=== PATIENT | female | born 2000 | race Caucasian/White ===

== ENCOUNTER 2020-06-29 07:26 | Inpatient (IN) ==
[2020-06-29] MEDS ORDERED: OXYTOCIN 30 UNITS/500 ML BAG IV PRN (09:33)
[2020-06-29] MEDS ORDERED: TERBUTALINE SULFATE 1 MG/ML VIAL ONE (09:49)
[2020-06-29] MEDS: LACTATED RINGER'S 1,000 ML IV PRN ×4 (09:50→16:03)
[2020-06-29 09:54] LABS: Hematocrit (blood only) 35.2 % (37-47); Hemoglobin 11.6 g/dL (12.0-16.0); Mean Corpuscular Hemoglobin 27.8 pg (25-34); Mean Corpuscular Volume 84.4 fL (80-100); Mean Platelet Volume 10.6 fL (7.4-10.4); Platelet Count 310 K/uL (130-400); RDW Coefficient of Variation 14.4 % (11.5-14.5); RDW Standard Deviation 44.7 fL (36.4-46.3); Red Blood Count 4.17 M/uL (4.2-5.4); White Blood Count 14.89 K/uL (4.8-10.8)
--- NOTE | 2020-06-29 10:05 | Progress Note ---
Date of Service June 29, 2020 Assessment & Plan Admission and Anticipated Discharge Date Admission Date: June 29, 2020 Subjective feta Decel seen on central etal monitor walked into pt's room, she was on her rt side and nurse was establishing IV access FHR was in the 80;s. pt has tetanic contraction scalp was preformed and fetus responded. Oxygen given and Brethine administered Meconium was noted with scalp stimulation scalp placed FHR returned to baseline expectant management for now Results & Data ([facility]) Vital Signs (Past 12 Hours) Vital Signs Temp Pulse Resp BP 06/29/20 09:29 18 06/29/20 08:28 93 H 95/53 L 06/29/20 07:52 93 H 95/53 L 06/29/20 07:46 37.2 C 93 H 18 91/51 L 06/29/20 07:42 93 H 91/51 L 06/29/20 07:32 37.2 C 18
--- NOTE | 2020-06-29 10:39 | Anesthesiology Consultation ---
Date of Service June 29, 2020 Assessment & Plan (1) Encounter for pre-operative examination: Chart Review Chart Review: Acceptable Risk for Surgery and Acceptable Risk for Labor Epidural (or spinal for if required) Consults Requested none ASA ASA2 Proposed Anesthesia Anesthesia Type: Labor Epidural (or spinal if csection is required) Risk / Benefits Reviewed With: PT / POA / Parent / Guardian, Accepts Plan and Informed Consent Obtained Additional Notes Labs pending. Patient required terbutaline after decel immediately after arriving. Patient wants epidural if she is able to have a vaginal delivery. She was consented for epidural in case of vaginal delivery. She was also consented for spinal and/or GA in the event of an emergency requiring . Patient to remove lip ring in case of need for emergent intubation. We will continue to follow. History Height/Weight Height: 5 ft 1 in Weight: 87.543 kg Allergies Allergy/AdvReac Type Severity Reaction Status Date / Time No Known Allergies Allergy Unverified 06/29/20 07:38 Medications Home Medications Medication Instructions Recorded Confirmed Last Taken ferrous sulfate [Iron (ferrous 325 mg PO DAILY 06/29/20 06/29/20 06/28/20 sulfate)] prenat.vits,ashley,[id number]-[id number] 1 tab PO DAILY 06/29/20 06/29/20 06/28/20 [ #2] Active Medications Generic Name Dose Route Start Last Admin Trade Name Freq PRN Reason Stop Dose Admin Lactated Ringer's 1,000 mls @ 125 mls/hr 06/29/20 09:33 06/29/20 10:38 Lr IV 07/01/20 09:32 125 mls/hr .Q8H PRN Infusion L&D Protocol Protocol NPO Date Last Intake of Fluids: 06/29/20 Time Last Intake of Fluids: 10:29 Date Last Intake of Solids: 06/28/20 Time Last Intake of Solids: 18:00 Past Medical History Medical History No known health problems Exercise / Class Metabolic Activity II 4-5 Yardwork/Stairs/Walk up hill Negative for chest pain or shortness of breath. Past Family History Family History Other No history of previous surgery No known health problems Past Surgical History Surgical History No history of previous surgery Past Anesthesia History No Family Hx of Anesthesia Complications History of PONV No Hx of Motion Sickness Social History Smoking Status: Former smoker Hx Alcohol Use: No Hx Substance Use: No Physical Exam Vital Signs Last Vital Signs Temp 37.2 C 06/29/20 07:46 Pulse 115 H 06/29/20 10:26 Resp 18 06/29/20 09:29 BP 95/53 L 06/29/20 08:28 Pulse Ox 100 06/29/20 10:26 Constitutional not obese (gravid uterus) ENMT Mouth: + macroglossia; no TMJ abnormality and oral opening not small Thyromental Distance: > or= 3.5 Finger Breadths Mallampati Class: III upper lip ring Neck normal visual inspection; neck extension not limited Respiratory normal respiratory effort Auscultation: lungs clear to auscultation bilaterally Cardiovascular Rate/Rhythm: regular rate and regular rhythm Heart Sounds: no murmur Neurologic moves all extremities Motor/Sensory: no sensory deficit History of back pain due to mild scoliosis Psychiatric Orientation: alert and oriented x 3 Testing Laboratory Results 06/29/20 09:43
[2020-06-29] MEDS ORDERED: ePHEDrine sulfate 50 MG/ML AMP ONE (12:00)
[2020-06-29] MEDS ORDERED: BUPIVACAINE 0.25% 30 ML VIAL ONE (12:01)
[2020-06-29] MEDS ORDERED: SODIUM CHLORIDE 0.9% INJ 10 ML VIAL ONE (12:01)
[2020-06-29] MEDS ORDERED: fentaNYL citrate 100 MCG/2 ML VIAL ONE ×2 (12:01→17:46)
[2020-06-29] MEDS ORDERED: fentaNYL 2MCG/ML ROPIVACAINE 1.25MG/ML 100 ML BAG EPI ONE (12:02)
[2020-06-29] MEDS ORDERED: NALOXONE HCL 0.4 MG/1 ML VIAL/CARP IV PRN ×3 (12:55→19:50)
[2020-06-29] MEDS ORDERED: NALOXONE HCL 1 MG in SODIUM CHLORIDE 0.9% 1000ML 1,000 ML IV PRN ×3 (12:55→19:50)
[2020-06-29] MEDS ORDERED: PROMETHAZINE HCL 6.25 MG in SODIUM CHLORIDE 0.9% 50 ML IV PRN ×2 (12:55→19:50)
[2020-06-29] MEDS ORDERED: ePHEDrine sulfate 50 MG/ML AMP IV PRN ×3 (12:55→19:50)
[2020-06-29] MEDS ORDERED: fentaNYL 2MCG/ML ROPIVACAINE 1.25MG/ML 100 ML BAG EPI PRN (12:55)
[2020-06-29] MEDS ORDERED: ONDANSETRON INJ 2 MG/ML 2 ML VIAL IV PRN ×3 (12:55→19:50)
[2020-06-29] MEDS ORDERED: diphenhydrAMINE 50 MG/ML VIAL IV PRN ×3 (12:55→19:50)
[2020-06-29] MEDS ORDERED: LIDOCAINE/EPINEPHRINE 2% 1:200,000 20 ML SDV ONE (17:44)
[2020-06-29] MEDS ORDERED: OXYTOCIN 10 UNITS/ML VIAL ONE (17:44)
[2020-06-29] MEDS ORDERED: CITRIC ACID/SODIUM CITRATE 15 ML UDC PO ONE (17:45)
[2020-06-29] MEDS ORDERED: LACTATED RINGER'S 1,000 ML IV SCH ×2 (17:45→19:30)
[2020-06-29] MEDS ORDERED: ceFAZolin 2000MG 2,000 MG/15 ML SYR IV ONE (17:45)
[2020-06-29] MEDS ORDERED: MoRPHine SULFATE PF 1 MG/ML 10 ML AMP/VIAL ONE (17:46)
[2020-06-29] MEDS ORDERED: PHENYLEPHRINE 100MCG/ML 5ML SYR ONE (17:47)
[2020-06-29] MEDS ORDERED: NALOXONE HCL 0.08 MG in SYRINGE 1.8 ML IV PRN ×2 (17:54→19:50)
[2020-06-29] MEDS ORDERED: MoRPHine SULFATE PF 1 MG/ML 10 ML AMP/VIAL EPI ONE (17:54)
[2020-06-29] MEDS ORDERED: LACTATED RINGER'S 500 ML IV PRN ×2 (17:54→19:50)
[2020-06-29] MEDS ORDERED: HYDROmorphone INJ 0.5 MG/0.5 ML SYR IV PRN ×2 (17:54→19:50)
[2020-06-29] MEDS ORDERED: KETOROLAC 30 MG/ML VIAL IV PRN ×2 (17:54→19:50)
[2020-06-29] MEDS ORDERED: SODIUM CHLORIDE 0.9% 1000ML 1,000 ML IV SCH ×2 (18:00→20:00)
[2020-06-29] MEDS ORDERED: NO NARCOTICS OR SEDATIVES SCH ×2 (18:00→20:00)
[2020-06-29] MEDS ORDERED: METHYLERGONOVINE MALEATE 0.2 MG/ML AMP ONE (18:31)
[2020-06-29 19:07] LABS: Base Excess Cord Arterial Bld -3.4 mEq/L (-9-1.8); CO2 Cord Arterial Blood 44 mmHg (39.1-73.5); HCO3 Cord Arterial Blood 23 mmol/L (19.7-28.5); PO2 Cord Arterial Blood 29 mmHg (4.1-31.7); pH Cord Arterial Blood 7.33 (7.1-7.38)
[2020-06-29 19:11] LABS: Oxygen Sat Cord Arterial Blood < 60.0 % (<60)
[2020-06-29 19:12] LABS: Base Excess Cord Venous Blood -3.4 mEq/L (-7.7-1.9); Cord Venous Blood HCO3 23 mmol/L (18.4-26.8); Cord Venous Blood PCO2 45 mmHg (30.4-57.2); Cord Venous Blood PO2 28 mmHg (14.1-43.3); Cord Venous Blood pH 7.32 (7.20-7.44)
[2020-06-29 19:15] LABS: O2 Saturation Cord Venous Bld < 60.0 % (<68)
[2020-06-29] MEDS ORDERED: BENZOCAINE 20% AER SPR 82.5 GM CAN EXT PRN (19:27)
[2020-06-29] MEDS ORDERED: HYDROCORTISONE ACETATE 25 MG SUPP PR PRN (19:27)
[2020-06-29] MEDS ORDERED: SENNA 8.6 MG TAB PO PRN (19:27)
[2020-06-29] MEDS ORDERED: SUPERCREAM 0.870% 15 GM JAR EXT PRN (19:27)
[2020-06-29] MEDS ORDERED: DIPHTHERIA/TETANUS/PERTUSSIS 0.5 ML SYR/VIAL IM ONE (19:27)
[2020-06-29] MEDS ORDERED: MAGNESIUM HYDROXIDE SUSP 30 ML UDC PO PRN (19:27)
[2020-06-29] MEDS ORDERED: miSOPROStoL 200 MCG TAB ONE (19:40)
[2020-06-29] MEDS ORDERED: OXYTOCIN 20 UNITS in LACTATED RINGER'S 1,000 ML IV SCH (19:45)
--- NOTE | 2020-06-29 19:49 | Anesthesiology Progress Note ---
Date of Service June 29, 2020 Anesthesia Post Procedure Vital Signs Vital Signs: Temp Pulse Resp BP Pulse Ox Pulse Ox 06/29/20 19:44 107 H 97 06/29/20 19:43 102 H 103/61 93 06/29/20 19:39 112 H 97 06/29/20 19:36 106 H 94 06/29/20 19:32 108 H 98 06/29/20 19:30 105 H 107/58 L 06/29/20 19:28 99 H 92 06/29/20 17:55 126 H 99 06/29/20 17:50 126 H 98 06/29/20 17:45 135 H 100 06/29/20 17:40 123 H 140/73 98 06/29/20 17:35 124 H 99 06/29/20 17:30 128 H 99 06/29/20 17:29 131 H 126/59 L 06/29/20 17:25 123 H 100 06/29/20 17:20 126 H 99 06/29/20 17:19 127 H 129/63 06/29/20 17:10 127 H 131/70 06/29/20 17:04 123 H 116/57 L 06/29/20 16:59 123 H 116/57 L 06/29/20 16:49 129 H 130/59 L 06/29/20 16:39 133 H 127/58 L 06/29/20 16:29 133 H 140/68 06/29/20 16:20 134 H 131/60 06/29/20 16:09 136 H 131/60 06/29/20 15:59 101 H 125/66 06/29/20 15:49 90 135/84 06/29/20 15:46 102 H 100 06/29/20 15:41 97 H 100 06/29/20 15:39 101 H 140/79 06/29/20 15:36 96 H 100 06/29/20 15:31 101 H 98 06/29/20 15:30 94 H 133/72 06/29/20 15:26 94 H 96 06/29/20 15:21 95 H 98 06/29/20 15:19 92 H 120/58 L 06/29/20 15:16 91 H 96 06/29/20 15:11 102 H 97 06/29/20 15:09 88 114/58 L 06/29/20 15:06 101 H 97 06/29/20 15:01 100 H 98 06/29/20 14:59 92 H 115/63 06/29/20 14:56 104 H 98 06/29/20 14:52 100 H 127/57 L 06/29/20 14:51 110 H 99 06/29/20 14:46 112 H 100 06/29/20 14:41 100 H 98 06/29/20 14:39 95 H 114/64 06/29/20 14:36 100 H 100 06/29/20 14:31 105 H 99 06/29/20 14:29 96 H 117/76 06/29/20 14:26 100 H 99 06/29/20 14:21 104 H 100 06/29/20 14:19 96 H 108/59 L 06/29/20 14:16 105 H 100 06/29/20 14:11 100 H 99 06/29/20 14:10 101 H 116/63 06/29/20 14:06 99 H 99 06/29/20 14:01 104 H 99 06/29/20 14:00 36.9 C 18 06/29/20 13:59 106 H 115/64 06/29/20 13:58 36.9 C 18 06/29/20 13:56 102 H 99 06/29/20 13:52 111 H 110/53 L 06/29/20 13:51 105 H 100 06/29/20 13:46 96 H 96 06/29/20 13:41 96 H 97 06/29/20 13:40 93 H 94/55 L 06/29/20 13:36 88 96 06/29/20 13:31 86 97 06/29/20 13:30 90 88/49 L 06/29/20 13:26 89 98 06/29/20 13:21 87 98 06/29/20 13:20 87 90/50 L 06/29/20 13:16 97 H 98 06/29/20 13:11 101 H 98 06/29/20 13:09 99 H 95/54 L 06/29/20 13:06 109 H 102/50 L 98 06/29/20 13:03 105 H 106/57 L 06/29/20 13:01 112 H 99 99 06/29/20 13:00 97 H 110/56 L 06/29/20 12:56 104 H 123/67 99 06/29/20 12:54 100 H 116/59 L 06/29/20 12:51 106 H 126/61 99 06/29/20 12:48 101 H 124/76 06/29/20 12:46 98 H 98 06/29/20 12:41 107 H 130/63 100 06/29/20 12:39 110 H 135/71 06/29/20 12:36 110 H 100 06/29/20 12:31 105 H 100 06/29/20 12:26 104 H 100 06/29/20 12:21 107 H 99 06/29/20 12:16 101 H 100 06/29/20 12:11 110 H 100 06/29/20 12:06 115 H 99 06/29/20 12:01 117 H 99 06/29/20 11:56 121 H 98 06/29/20 11:54 37.2 C 18 100 06/29/20 11:51 118 H 98 06/29/20 11:46 116 H 98 06/29/20 11:41 112 H 99 06/29/20 11:36 104 H 100 06/29/20 11:31 122 H 99 06/29/20 11:26 117 H 100 06/29/20 11:21 117 H 100 06/29/20 11:16 120 H 100 06/29/20 11:11 108 H 100 06/29/20 11:06 117 H 100 06/29/20 11:01 120 H 100 06/29/20 10:56 117 H 99 06/29/20 10:51 121 H 100 06/29/20 10:46 114 H 100 06/29/20 10:41 117 H 100 06/29/20 10:36 122 H 100 06/29/20 10:31 118 H 100 06/29/20 10:26 115 H 100 06/29/20 10:21 120 H 100 06/29/20 10:16 117 H 100 06/29/20 10:11 122 H 100 06/29/20 09:29 18 06/29/20 08:28 93 H 95/53 L 06/29/20 07:52 93 H 95/53 L 06/29/20 07:46 37.2 C 93 H 18 91/51 L 06/29/20 07:42 93 H 91/51 L 06/29/20 07:32 37.2 C 18 Pain Intensity Lower Abdomen: Pain Intensity: 0 Transfer of Care Handoff Completed per policy Notes Mental Status: alert / awake / arousable Nausea / Vomiting: adequately controlled Pain: adequately controlled Airway Patency, RR, SpO2: stable & adequate BP & HR: stable & adequate Hydration State: stable & adequate Neuraxial Anesthesia: was administered and sensory block is resolving Anesthetic Complications: no major complications apparent
--- NOTE | 2020-06-29 19:49 | Anesthesia Procedure Note ---
Date of Service June 29, 2020 Anesthesia Post Epidural Note Vital Signs Vital Signs: Temp Pulse Resp BP Pulse Ox 36.9 C 107 H 18 103/61 97 06/29/20 14:00 06/29/20 19:44 06/29/20 14:00 06/29/20 19:43 06/29/20 19:44 Pain Intensity Lower Abdomen: Pain Intensity: 0 Notes Mental Status: alert / awake / arousable Nausea / Vomiting: adequately controlled Pain: adequately controlled Airway Patency, RR, SpO2: stable & adequate BP & HR: stable & adequate Hydration State: stable & adequate Neuraxial Anesthesia: was administered and sensory block is resolving Anesthetic Complications: no major complications apparent and Pt Satisfied with anesthetic care Epidural: Removed without complications and With tip intact
[2020-06-29] MEDS ORDERED: MoRPHine SULFATE 2 MG/ML CARP IV PRN (19:50)
[2020-06-29] MEDS ORDERED: MEPERIDINE HCL 25 MG/ML CARP/VIAL IV PRN (19:50)
[2020-06-29] MEDS ORDERED: MoRPHine SULFATE PF 1 MG/ML 10 ML AMP/VIAL INT SPINAL ONE (19:50)
[2020-06-29] MEDS ORDERED: DC INTRASPINAL MORPHINE SCH (20:00)
[2020-06-30 06:37] LABS: Basophils # (auto) 0.01 K/uL (0-0.2); Basophils % (auto) 0.1 %; Eosinophils # (auto) 0.03 K/uL (0-0.5); Eosinophils % (auto) 0.2 %; Hematocrit (blood only) 26.4 % (37-47); Hemoglobin 8.6 g/dL (12.0-16.0); Immature Granulocytes # (auto) 0.07 K/uL (0.00-0.02); Immature Granulocytes % (auto) 0.6 %; Lymphocytes # (auto) 1.64 K/uL (1.2-3.4); Lymphocytes % (auto) 13.3 %; Mean Corpuscular Hemoglobin 27.9 pg (25-34); Mean Corpuscular Hgb Conc 32.6 g/dL (32-36); Mean Corpuscular Volume 85.7 fL (80-100); Mean Platelet Volume 10.7 fL (7.4-10.4); Monocytes # (auto) 0.91 K/uL (0.11-0.59); Monocytes % (auto) 7.4 %; Neutrophils # (auto) 9.67 K/uL (1.4-6.5); Neutrophils % (auto) 78.4 %; Platelet Count 214 K/uL (130-400); RDW Standard Deviation 46.3 fL (36.4-46.3); Red Blood Count 3.08 M/uL (4.2-5.4); White Blood Count 12.33 K/uL (4.8-10.8)
[2020-06-30] MEDS: FERROUS SULFATE 325 MG TAB PO SCH (08:32)
[2020-06-30] MEDS: PRENATAL VITAMIN 1 TAB PO SCH (08:32)
[2020-06-30] MEDS: DOCUSATE SODIUM 100 MG CAP PO SCH ×2 (08:32→21:05)
[2020-06-30] MEDS: SIMETHICONE 80 MG CHEW PO SCH ×4 (08:33→21:04)
--- NOTE | 2020-06-30 11:06 | Surgery Progress Note ---
Date of Service June 30, 2020 Assessment & Plan Admission and Anticipated Discharge Date Admission Date: June 29, 2020 Subjective POD#1 stable passing gas tolerating diet Physical Exam Constitutional: WD/WN, vitals as above well developed and comfortable incision c/d/i abdomen soft and non-tender no edema neg Traci's Results & Data ([facility]) Vital Signs (Past 12 Hours) Vital Signs Temp Pulse Pulse Resp BP Pulse Ox 06/30/20 09:00 20 97 06/30/20 08:00 20 97 06/30/20 07:11 36.8 C 99 H 18 95/60 L 99 06/30/20 07:00 18 99 06/30/20 06:00 16 96 06/30/20 05:00 16 97 06/30/20 04:00 36.8 C 93 H 16 102/68 96 06/30/20 03:00 16 95 06/30/20 01:07 16 98 06/30/20 00:00 36.9 C 89 16 103/67 94 Laboratory Results Laboratory Results - last 48 hr 06/29/20 06/29/20 06/29/20 09:43 09:45 09:45 WBC 14.89 H RBC 4.17 L Hgb 11.6 L Hct 35.2 L MCV 84.4 MCH 27.8 MCHC 33.0 RDW Std Deviation 44.7 RDW Coeff of Mary 14.4 Plt Count 310 MPV 10.6 H Immature Gran % (Auto) Neut % (Auto) Lymph % (Auto) [place] % (Auto) Eos % (Auto) Baso % (Auto) Neut # (Auto) Lymph # (Auto) [place] # (Auto) Eos # (Auto) Baso # (Auto) Immature Gran # (Auto) Cord ABG pH Cord ABG pCO2 Cord ABG pO2 Cord ABG HCO3 Cord ABG Base Excess Cord ABG O2 Sat Cord VBG pH Cord VBG pCO2 Cord VBG pO2 Cord VBG HCO3 Cord VBG Base Excess Cord VBG O2 Sat Barometric Pressure Blood Gas Comments COVID-19 Eval Order Covid19 [facility] SARS-CoV-2, RNA, NAAT NEGATIVE 06/29/20 06/29/20 06/30/20 18:27 18:27 06:17 WBC 12.33 H RBC 3.08 L Hgb 8.6 L D Hct 26.4 L MCV 85.7 MCH 27.9 MCHC 32.6 RDW Std Deviation 46.3 RDW Coeff of Mary 15.0 H Plt Count 214 MPV 10.7 H Immature Gran % (Auto) 0.6 Neut % (Auto) 78.4 Lymph % (Auto) 13.3 [place] % (Auto) 7.4 Eos % (Auto) 0.2 Baso % (Auto) 0.1 Neut # (Auto) 9.67 H Lymph # (Auto) 1.64 [place] # (Auto) 0.91 H Eos # (Auto) 0.03 Baso # (Auto) 0.01 Immature Gran # (Auto) 0.07 H Cord ABG pH 7.33 Cord ABG pCO2 44 Cord ABG pO2 29 Cord ABG HCO3 23 Cord ABG Base Excess -3.4 Cord ABG O2 Sat < 60.0 Cord VBG pH 7.32 Cord VBG pCO2 45 Cord VBG pO2 28 Cord VBG HCO3 23 Cord VBG Base Excess -3.4 Cord VBG O2 Sat < 60.0 Barometric Pressure 729.5 729.5 Blood Gas Comments [facility] COVID-19 Eval Order SARS-CoV-2, RNA, NAAT
[2020-06-30] MEDS ORDERED: DC INTRASPINAL MORPHINE ONE (11:54)
[2020-06-30] MEDS: IBUPROFEN 600 MG TAB PO PRN ×3 (12:28→23:28)
[2020-06-30] MEDS: oxyCODONE/ACETAMINOPHEN 5mg/325mg TAB PO PRN ×3 (12:29→23:27)
[2020-06-30] MEDS ORDERED: diphenhydrAMINE 50 MG/ML VIAL IV PRN (12:55)
[2020-06-30] MEDS ORDERED: diphenhydrAMINE Capsule 25 MG CAP PO PRN (12:55)
[2020-06-30] MEDS ORDERED: PROMETHAZINE HCL 25 MG in SODIUM CHLORIDE 0.9% 50 ML IV PRN (12:55)
[2020-06-30] MEDS ORDERED: ONDANSETRON INJ 2 MG/ML 2 ML VIAL IV PRN (12:55)
[2020-06-30] MEDS ORDERED: bisacodyL 5 MG TABEC PO SCH (20:00)
[2020-07-01 06:37] LABS: Hematocrit (blood only) 26.9 % (37-47); Hemoglobin 8.7 g/dL (12.0-16.0)
[2020-07-01] MEDS: IBUPROFEN 600 MG TAB PO PRN ×2 (06:46→12:09)
[2020-07-01] MEDS: oxyCODONE/ACETAMINOPHEN 5mg/325mg TAB PO PRN ×2 (06:46→12:09)
[2020-07-01] MEDS: SIMETHICONE 80 MG CHEW PO SCH ×3 (09:09→12:09)
[2020-07-01] MEDS: DOCUSATE SODIUM 100 MG CAP PO SCH ×2 (09:09→09:10)
[2020-07-01] MEDS: PRENATAL VITAMIN 1 TAB PO SCH (09:10)
[2020-07-01] MEDS: FERROUS SULFATE 325 MG TAB PO SCH (09:10)
--- NOTE | 2020-07-01 11:16 | Surgery Progress Note ---
Date of Service July 01, 2020 Assessment & Plan Admission and Anticipated Discharge Date Admission Date: June 29, 2020 Subjective POD#2 stable wants to go home passing gas tolerating diet out of bed Physical Exam Constitutional: WD/WN, vitals as above well developed and comfortable incision c/d/i abdomen soft and non-tender no edema neg Traci's for d/c follow up next week in office Results & Data ([facility]) Vital Signs (Past 12 Hours) Vital Signs Temp Pulse Resp BP 06/30/20 23:15 36.9 C 80 16 113/69 Laboratory Results Laboratory Results - last 72 hr 06/29/20 06/29/20 06/29/20 09:43 09:45 09:45 WBC 14.89 H RBC 4.17 L Hgb 11.6 L Hct 35.2 L MCV 84.4 MCH 27.8 MCHC 33.0 RDW Std Deviation 44.7 RDW Coeff of Mary 14.4 Plt Count 310 MPV 10.6 H Immature Gran % (Auto) Neut % (Auto) Lymph % (Auto) [place] % (Auto) Eos % (Auto) Baso % (Auto) Neut # (Auto) Lymph # (Auto) [place] # (Auto) Eos # (Auto) Baso # (Auto) Immature Gran # (Auto) Cord ABG pH Cord ABG pCO2 Cord ABG pO2 Cord ABG HCO3 Cord ABG Base Excess Cord ABG O2 Sat Cord VBG pH Cord VBG pCO2 Cord VBG pO2 Cord VBG HCO3 Cord VBG Base Excess Cord VBG O2 Sat Barometric Pressure Blood Gas Comments COVID-19 Eval Order Covid19 [facility] SARS-CoV-2, RNA, NAAT NEGATIVE 06/29/20 06/29/20 06/30/20 18:27 18:27 06:17 WBC 12.33 H RBC 3.08 L Hgb 8.6 L D Hct 26.4 L MCV 85.7 MCH 27.9 MCHC 32.6 RDW Std Deviation 46.3 RDW Coeff of Mary 15.0 H Plt Count 214 MPV 10.7 H Immature Gran % (Auto) 0.6 Neut % (Auto) 78.4 Lymph % (Auto) 13.3 [place] % (Auto) 7.4 Eos % (Auto) 0.2 Baso % (Auto) 0.1 Neut # (Auto) 9.67 H Lymph # (Auto) 1.64 [place] # (Auto) 0.91 H Eos # (Auto) 0.03 Baso # (Auto) 0.01 Immature Gran # (Auto) 0.07 H Cord ABG pH 7.33 Cord ABG pCO2 44 Cord ABG pO2 29 Cord ABG HCO3 23 Cord ABG Base Excess -3.4 Cord ABG O2 Sat < 60.0 Cord VBG pH 7.32 Cord VBG pCO2 45 Cord VBG pO2 28 Cord VBG HCO3 23 Cord VBG Base Excess -3.4 Cord VBG O2 Sat < 60.0 Barometric Pressure 729.5 729.5 Blood Gas Comments [facility] REG[facility] COVID-19 Eval Order SARS-CoV-2, RNA, NAAT 07/01/20 06:15 WBC RBC Hgb 8.7 L Hct 26.9 L MCV MCH MCHC RDW Std Deviation RDW Coeff of Mary Plt Count MPV Immature Gran % (Auto) Neut % (Auto) Lymph % (Auto) [place] % (Auto) Eos % (Auto) Baso % (Auto) Neut # (Auto) Lymph # (Auto) [place] # (Auto) Eos # (Auto) Baso # (Auto) Immature Gran # (Auto) Cord ABG pH Cord ABG pCO2 Cord ABG pO2 Cord ABG HCO3 Cord ABG Base Excess Cord ABG O2 Sat Cord VBG pH Cord VBG pCO2 Cord VBG pO2 Cord VBG HCO3 Cord VBG Base Excess Cord VBG O2 Sat Barometric Pressure Blood Gas Comments COVID-19 Eval Order SARS-CoV-2, RNA, NAAT
[2020-07-01] MEDS ORDERED: bisacodyL 10 MG SUPP PR PRN (19:27)
--- NOTE | 2020-07-02 08:15 | Operative Report (OR) ---
DATE OF OPERATION: 06/29/2020 SECTION PROCEDURE NOTE The patient is a 20-year-old G1, P0, who presented to labor and delivery this morning in labor. She was admitted and went on to progress to fully dilation. The patient had a series of late decelerations, which required several resuscitations. When she was fully dilated she began to push and continued to have late decelerations. Patient was therefore sectioned for poor intolerance to labor and failure to descend. PREOPERATIVE DIAGNOSES: 1. at term. 2. Poor intolerance to labor. 3. Failure to descend. POSTOPERATIVE DIAGNOSES: 1. at term. 2. Poor intolerance to labor. 3. Failure to descend. PROCEDURE: section. SURGEON: Bird Short MD RESIDENT SERVICES DIRECTOR: SHANICE Zimmerman. ANESTHESIA: Spinal. FINDINGS: A live in cephalic presentation with meconium. Weight and Apgars in the pediatric record. Normal uterus, tubes, and adnexa. COMPLICATIONS: None. DRAINS: Nava catheter. PATHOLOGY: Placenta, cord blood and cord gas. DISPOSITION: Stable to recovery room. ESTIMATED BLOOD LOSS: 600 mL. INTRAVENOUS FLUIDS: 1500 mL. URINE OUTPUT: 300 mL clear urine at end of procedure. DESCRIPTION OF PROCEDURE: The patient was taken to the operating room where she was prepped and draped in normal sterile fashion after timeout was called. Pfannenstiel incision was made and carried down to the fascia with a scalpel. Fascia was incised in the midline and extended laterally on both sides. Peritoneum was identified. Robert retractor was placed in the abdomen for retraction. Vesicouterine peritoneum was sharply dissected off the lower segment of the uterus. Low transverse incision was made and extended laterally on both sides. There was meconium, which was known prior to surgery. 's head was delivered with Victus retractor. Cord was clamped and cut and handed over to the waiting pediatric team. Cord blood, cord gases obtained. Uterus was exteriorized and cleared of all clots and debris after placenta was manually removed. Uterus was closed in 2 layers using Vicryl stitch. There was good hemostasis post-closure. Copious amount of irrigation used to irrigate the abdomen. Uterus was returned to the abdominal cavity. Once again, hemostasis was reestablished. Peritoneum was closed with a 2-0 plain. Fascia was closed with Vicryl stitch. SubQ space was irrigated and approximated with 2-0 plain. Skin was closed with mike. All instruments were removed from the abdomen including retractors, needles and sponges and accounted for x2. The patient is sent to recovery in stable condition. I attest to the content of the Intraoperative Record and any orders documented therein. Any exception s are noted below.
--- NOTE | 2020-07-08 01:18 | Discharge Summary (DS) ---
HISTORY OF PRESENT ILLNESS: This is a 20-year-old G1, P0, who presented to labor and delivery on 06/29/2020 in labor. She was admitted and went on to progress to fully dilation. She had a series of late decelerations throughout her labor process. These required serial resuscitations. When she became fully dilated she began to push and continued to have late decelerations. Decision was therefore made to perform a section. The patient agreed, consent was signed and patient went on to have primary section. Details of the surgery and pediatric information are in the respective record. Surgery was otherwise unremarkable. The patient did well on day 1 and day 2 of surgery, which was 07/01/2020. The patient was discharged home in stable condition. PAST MEDICAL HISTORY: None. PAST SURGICAL HISTORY: None. SOCIAL HISTORY: The patient denies tobacco, drug or alcohol use. FAMILY HISTORY: Not contributory. ALLERGIES: No known drug allergies. PHYSICAL EXAMINATION: VITAL SIGNS: On day of discharge, blood pressure was 113/69, pulse was 80, respiration was 16, temperature was 36.9. CBC on 07/01/2020 showed hemoglobin of 8.7, hematocrit of 26.9. GENERAL: Well-developed, well-nourished female in no acute distress. HEART: S1, S2, regular rhythm and rate. LUNGS: Clear to auscultation bilaterally. ABDOMEN: Nontender, nondistended. Incision clean, dry and intact. EXTREMITIES: No cyanosis, clubbing or edema. PROCEDURE AT TIME OF DISCHARGE: Postop section. DISPOSITION: To home. DISCHARGE PLAN: The patient is discharged home with instructions including activity, diet and followup appointment.
== END 2020-07-01 13:12 | disposition home or self-care (01) | DRG 788 ==
LOC: OPB 07:26 → 4S1 07:31 → 4S2 22:10